=== PATIENT | female | born 1995 | race African-American/Black ===

== ENCOUNTER 2022-07-25 07:45 | Emergency (ER) | payer OTHER ==
[~2022-07-25] VITALS: Ht 162.6 cm; Wt 79.7 kg
[2022-07-25] MEDS ORDERED: CYCLOBENZAPRINE5 MG PO (08:03)
== END 2022-07-25 09:11 | disposition home or self-care (01) ==
LOC: ED 07:45
DX: R20.2 Paresthesia of skin (principal)
CPT/HCPCS: 70450; 99284-25

== ENCOUNTER 2023-11-12 12:36 | Emergency (ER) | payer OTHER ==
[~2023-11-12] VITALS: Ht 162.6 cm; Wt 97.9 kg
[~2023-11-12 12:36] MED LIST: CYCLOBENZAPRINE5 MG PO
[2023-11-12] MEDS ORDERED: KETOROLAC TROMETHAMINE 30 MG/ML VIAL IM ONE (13:00)
[2023-11-12] MEDS ORDERED: DEXAMETHASONE SOD PHOS 10 MG/ML VIAL PO ONE (13:00)
[2023-11-12] MEDS ORDERED: HYDROCODONE/APAP 10/325 1 TAB PO ONE (13:00)
[2023-11-12] MEDS ORDERED: HYDROCODON-ACE1 EA10 PO (13:43)
[2023-11-12 14:08] VITALS: BP 115/75
== END 2023-11-12 14:08 | disposition home or self-care (01) ==
LOC: ED 12:36
DX: S39.012A Strain of muscle, fascia and tendon of lower back, initial encounter (principal); K59.00 Constipation, unspecified; X50.0XXA Overexertion from strenuous movement or load, initial encounter; Y99.0 Civilian activity done for income or pay
CPT/HCPCS: 72100; A9270; J1100; J1885